=== PATIENT | male | born 1980 | race African-American/Black ===

== ENCOUNTER 2016-09-26 06:44 | Emergency (ER) | payer OTHER ==
[~2016-09-26] VITALS: Ht 170.2 cm; Wt 64.0 kg
[~2016-09-26 06:44] MED LIST: IBUP600T26 PO; ORPH100T PO; TRAM50 PO
[2016-09-26 06:50] VITALS: BP 124/85; PULSE 58; RESP 15; TEMP 98.1; O2SAT 100
--- NOTE | 2016-09-26 07:16 | PD ---
HPI Chief Complaint: Back/ Neck Pain or Injury Time Seen by Provider: 07:03 Travel History International Travel<30 days: No Contact w/Intl Traveler<30days: No Traveled to known affect area: No History of Present Illness HPI 35-year-old male complains of right low back pain right hip pain and right leg pain. Patient states the pain started a month ago. Patient states the pain aching pain and sharp pain started to right low back area with radiation to right hip and right leg. Patient denies any fall. Patient denies any focal weakness or numbness of extremity. Recent states the pain is worse with bending over. Patient denies any fever chills. Patient denies abdominal pain. Patient denies any dysuria or frequency. On a scale of 1-10 the pain is a 7. PFSH Past Medical History Medical History: Denies Significant Hx Immunizations Current: Yes Influenza Vaccination: No ?: Not Past Surgical History Surgical History: No Previous Surgery Social History Alcohol Use: Yes (RARE) Tobacco Use: Yes (1 1/2 PACK A DAY) Substance Use: No Allergies-Medications (Allergen,Severity, Reaction): Coded Allergies: No Known Allergies (Verified , 09/26/16) Reported Meds & Prescriptions Reported Meds & Active Scripts Active No Active Prescriptions or Reported Medications Review of Systems General / Constitutional: No: Fever Eyes: No: Visual changes HENT: No: Headaches Cardiovascular: No: Chest Pain or Discomfort Respiratory: No: Shortness of Breath Gastrointestinal: No: Abdominal Pain Genitourinary: No: Dysuria Musculoskeletal: No: Pain Skin: No Rash Neurologic: No: Weakness Psychiatric: No: Depression Endocrine: No: Polydipsia Hematologic/Lymphatic: No: Easy Bruising Physical Exam Narrative GENERAL: Well-nourished, well-developed patient. SKIN: Focused skin assessment warm/dry. HEAD: Normocephalic. EYES: No scleral icterus. No injection or drainage. NECK: Supple, trachea midline. No JVD or lymphadenopathy. CARDIOVASCULAR: Regular rate and rhythm without murmurs, gallops, or rubs. RESPIRATORY: Breath sounds equal bilaterally. No accessory muscle use. GASTROINTESTINAL: Abdomen soft, non-tender, nondistended. MUSCULOSKELETAL: No cyanosis, or edema. Mild to moderate tenderness on palpation anterior and lateral aspect the right hip. BACK: Moderate tenderness on palpation right lumbar area, without obvious deformity. No CVA tenderness. Positive straight leg raising on the right side. Neurologic exam normal. Data Data Last Documented VS Vital Signs Date Time Temp Pulse Resp B/P Pulse Ox O2 Delivery O2 Flow Rate FiO2 09/26/16 06:50 98.1 58 15 124/85 100 Orders Spine, Lumbar - Ltd (Ap & Lat) (09/26/16 07:10) Hip, Uni(Ap&Lat) W Ap Pelvis (09/26/16 07:10) Ct Hip W/O Contrast (09/26/16 ) MDM Medical Decision Making Medical Screen Exam Complete: Yes Emergency Medical Condition: Yes Interpretation(s) Last Impressions Lumbar Spine X-Ray 09/26/16 0710 Signed Impressions: Service Date/Time: Monday, September 26, 2016 07:43 - CONCLUSION: Straightening otherwise unremarkable limited examination of the lumbar spine. Ernie Cummins MD Hip and Pelvis X-Ray 09/26/16 0710 Signed Impressions: Service Date/Time: Monday, September 26, 2016 07:45 - CONCLUSION: Slight cortical regularity of the right femoral neck could be a ridge of osteophytes versus nondisplaced fracture. Ernie Cummins MD Lower Extremity CT 09/26/16 0000 Signed Impressions: Service Date/Time: Monday, September 26, 2016 08:33 - CONCLUSION: No fractures are seen. Farhad Andrews MD Differential Diagnosis Differential diagnosis including bursitis, tendinitis, sprain, fracture, dislocation, sciatica. Narrative Course 35-year-old male with right low back pain, right hip pain with radiation to right leg. Diagnosis Primary Impression: Low back pain Qualified Code: M54.41 - Acute bilateral low back pain with right-sided sciatica Additional Impression: Sciatica Qualified Code: M54.31 - Sciatica of right side Patient Instructions: General Instructions Additional Instructions: Take medications as directed for pain. Follow-up with orthopedist and personal physician if persistent problem. Return if worse. Off work today and tomorrow. Med/Other Pt SpecificInfo: Prescription(s) given Scripts Prednisone 20 Mg Tab20 Mg PO DAILY #7 TAB Prov:Wilberto Jones MD 09/26/16 Methocarbamol (Robaxin)750 Mg [id number] Mg PO QID #40 TAB Prov:Wilberto Jones MD 09/26/16 Meloxicam (Mobic)15 Mg Tab15 Mg PO DAILY #20 TAB Prov:Wilberto Jones MD 09/26/16 Disposition: 01 DISCHARGE HOME Condition: Stable Wilberto Jones MD September 26, 2016 07:16
--- NOTE | 2016-09-26 08:12 | RADHPO ---
EXAM DATE/TIME: 09/26/2016 07:43 [facility] COMPARISON: No previous studies available for comparison. INDICATIONS : Low back pain due to occupation. MEDICAL HISTORY : None. SURGICAL HISTORY : None. ENCOUNTER: Initial ACUITY: 1 day PAIN SCORE: 6/10 LOCATION: Lumbar spine FINDINGS: Two view examination was performed. There are five non-rib bearing vertebral bodies. The vertebral bodies are in normal alignment without evidence of subluxation or scoliosis. There is straightening. The disc spaces are maintained. The pedicles are intact. Bony mineralization is normal. No fractur e is identified. Tiny anterior endplate osteophytes. CONCLUSION: Straightening otherwise unremarkable limited examination of the lumbar spine. Ernie Cummins MD on September 26, 2016 at 8:10 Board Certified Radiologist. This report was verified electronically.
--- NOTE | 2016-09-26 08:17 | RADHPO ---
EXAM DATE/TIME: 09/26/2016 07:45 [facility] COMPARISON: No previous studies available for comparison. INDICATIONS : Right hip pain due to occupation MEDICAL HISTORY : None. SURGICAL HISTORY : None. ENCOUNTER: Initial ACUITY: 1 day PAIN SCORE: 6/10 LOCATION: Right lateral hip FINDINGS: Examination of the right hip was performed with AP Pelvis. Mild degenerative changes. Slight cortical regularity of the femoral neck may be related to a ridge of osteophytes. The acetabulum is grossly intact. CONCLUSION: Slight cortical regularity of the right femoral neck could be a ridge of osteophytes versus nondispla dick fracture. Ernie Cummins MD on September 26, 2016 at 8:13 Board Certified Radiologist. This report was verified electronically.
--- NOTE | 2016-09-26 09:04 | RADHPO ---
EXAM DATE/TIME: 09/26/2016 08:33 [facility] COMPARISON: No previous studies available for comparison. INDICATIONS : Right hip pain, abnormal x-ray. RADIATION DOSE: 8.23 CTDIvol (mGy) MEDICAL HISTORY : None SURGICAL HISTORY : None. ENCOUNTER: Initial ACUITY: 1 month PAIN SCALE: 5/10 LOCATION: Right pelvis TECHNIQUE: Volumetric scanning of the hip was performed. Using automated exposure control and adjustment of the mA and/or kV according to patient size, radiation dose was kept as low as reasonably achievable to o btain optimal diagnostic quality images. FINDINGS: BONES: No evidence of fracture. Alignment is within normal limits. There is mild osteophyte formation seen at the neck head junction greatest laterally which corresponds to the findings on the plain radiograp h. JOINTS: No evidence of joint narrowing or effusion. SOFT TISSUES: Muscles, tendons and neurovascular structures are grossly unremarkable. No evidence of mass, organize d fluid collection, or foreign body. CONCLUSION: No fractures are seen. Farhad Andrews MD on September 26, 2016 at 9:00 Board Certified Radiologist. This report was verified electronically.
[2016-09-26] MEDS ORDERED: MOBI15TA PO (09:16)
[2016-09-26] MEDS ORDERED: PRED20 PO (09:16)
[2016-09-26] MEDS ORDERED: ROBA750T PO (09:16)
[2016-09-26 09:29] VITALS: BP 122/63
== END 2016-09-26 09:31 | disposition home or self-care (01) ==
LOC: PHED 06:44
DX: M54.31 Sciatica, right side (principal); M25.551 Pain in right hip; F17.200 Nicotine dependence, unspecified, uncomplicated
CPT/HCPCS: 72100; 73502; 73700; 99284

== ENCOUNTER 2016-10-29 06:55 | Emergency (ER) | payer OTHER ==
[~2016-10-29] VITALS: Ht 170.2 cm; Wt 65.2 kg
[~2016-10-29 06:55] MED LIST changes: -IBUP600T26 PO; +MOBI15TA PO; -ORPH100T PO; +PRED20 PO; +ROBA750T PO; -TRAM50 PO
[2016-10-29 07:00] VITALS: BP 135/89; PULSE 61; RESP 18; TEMP 98.4; O2SAT 100
[2016-10-29] MEDS ORDERED: MOBI15TA PO (07:39)
[2016-10-29] MEDS ORDERED: ROBA750T PO (07:39)
--- NOTE | 2016-10-29 07:39 | PD ---
HPI Chief Complaint: Musculoskeletal Complaint Time Seen by Provider: 07:14 Travel History International Travel<30 days: No Contact w/Intl Traveler<30days: No Traveled to known affect area: No History of Present Illness HPI Patient is a 36-year-old male presents emergency Department with right lower extremity pain. Patient states he was here last month for similar and the pain went completely away but no his pain is returned. He describes the sensation as a numbness and tingling typically to the mid thigh but occasionally extends distally all the way down to his ankle and toes. Denies any saddle anesthesia denies any back pain denies any difficulty urinating or focalized weakness. Denies any injury. 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 He states his symptoms are moderate in severity; on for the past few days gradually worsening. [facility] Past Medical History Diminished Hearing: No Immunizations Current: Yes Influenza Vaccination: No ?: Not Past Surgical History Surgical History: No Previous Surgery Social History Alcohol Use: Yes (RARE) Tobacco Use: Yes (1 1/2 PACK A DAY) Substance Use: No Allergies-Medications (Allergen,Severity, Reaction): Coded Allergies: No Known Allergies (Verified , 10/29/16) Reported Meds & Prescriptions Reported Meds & Active Scripts Active Mobic (Meloxicam) 15 Mg Tab 15 Mg PO DAILY Robaxin (Methocarbamol) 750 Mg Tab 750 Mg PO QID Review of Systems Except as stated in HPI: all other systems reviewed are Neg Physical Exam Narrative GENERAL: Well-nourished, well-developed patient. SKIN: Focused skin assessment warm/dry. HEAD: Normocephalic. EYES: No scleral icterus. No injection or drainage. NECK: Supple, trachea midline. No JVD or lymphadenopathy. CARDIOVASCULAR: Regular rate and rhythm without murmurs, gallops, or rubs. RESPIRATORY: Breath sounds equal bilaterally. No accessory muscle use. GASTROINTESTINAL: Abdomen soft, non-tender, nondistended. MUSCULOSKELETAL: No cyanosis, or edema. No midline CT or L-spine tenderness, no tenderness at the right SI joint, straight leg test is positive on the right. Pulses motor and sensory intact distally in all 4 extremities, no focalized bruising, no lesion, no mass, no laceration and no bony tenderness in the right lower extremity, he is able to ambulate with minimal pain. Left lower extremity is normal. BACK: Nontender without obvious deformity. No CVA tenderness. Data Data Last Documented VS Vital Signs Date Time Temp Pulse Resp B/P Pulse Ox O2 Delivery O2 Flow Rate FiO2 10/29/16 07:00 98.4 61 18 135/89 100 Orders Sodium Chloride 0.9% Flush (Ns Flush) (10/29/16 07:45) Acetamin-Hydrocod 325-5 Mg ([place] 5-325 (10/29/16 07:45) Mandatory Outpatient Referral (10/29/16 07:40) MDM Medical Decision Making Medical Screen Exam Complete: Yes Emergency Medical Condition: Yes Differential Diagnosis Sciatica, muscle strain, muscle sprain, degenerative disc disease. Cauda equina syndrome has been excluded clinically. Narrative Course Patient was roomed in the emergency department, review of his records shows he was indeed here approximate month ago and had x-ray of his right hip which is equivocal and therefore had a CT of his lower extremity which was negative. Patient's symptoms are consistent with sciatica and recommended to him that he needs to consider following up with a primary care physician for consideration of an MRI. Today he has no emergent indication for an MRI and is stable for discharge. Review of his E4 shows no recent narcotic scripts. Discussed pain management and symptomatic management at home and return to ED criteria. Diagnosis Primary Impression: Sciatica Qualified Code: M54.31 - Sciatica of right side Referrals: [facility] Additional Instructions: Follow up with the patient assistance program. Med/Other Pt SpecificInfo: Prescription(s) given Scripts Meloxicam (Mobic)15 Mg Tab15 Mg PO DAILY #20 TAB Prov:Laurent Frazier MD 10/29/16 Methocarbamol (Robaxin)750 Mg [id number] Mg PO QID #40 TAB Prov:Laurent Frazier MD 10/29/16 Disposition: DISCHARGE HOME Condition: Stable Laurent Frazier MD Oct 29, 2016 07:39
[2016-10-29] MEDS ORDERED: ACETAMINOPHEN/HYDROcodone 325 MG/5 MG TAB PO ONE (07:45)
[2016-10-29] MEDS ORDERED: SODIUM CHLORIDE 0.9% FLUSH 10 ML FLUSH IVF PRN (07:45)
== END 2016-10-29 08:06 | disposition home or self-care (01) ==
LOC: PHED 06:55
DX: M54.31 Sciatica, right side (principal)
CPT/HCPCS: 99284

== ENCOUNTER 2016-11-08 07:18 | Emergency (ER) | payer SELFPAY ==
[~2016-11-08] VITALS: Ht 170.2 cm; Wt 63.5 kg
[~2016-11-08 07:18] MED LIST changes: -PRED20 PO
[2016-11-08 07:19] VITALS: BP 145/89; PULSE 64; RESP 18; TEMP 98.2; O2SAT 100
[2016-11-08] MEDS ORDERED: DEXAMETHASONE SOD PHOS 4 MG/ML VIAL IM ONE (07:30)
[2016-11-08] MEDS ORDERED: PRED20 PO (07:35)
[2016-11-08] MEDS ORDERED: IBUP-232 PO (07:35)
--- NOTE | 2016-11-08 07:36 | PD ---
HPI Chief Complaint: Musculoskeletal Complaint Time Seen by Provider: 07:23 Travel History International Travel<30 days: No Contact w/Intl Traveler<30days: No Traveled to known affect area: No History of Present Illness HPI 36-year-old male complains of right hip pain with pain radiation down the right leg. Patient has been seen in emergency room 2 times in the past with the same problem. X-ray and CT of the right hip was negative acute pathology. Patient states that he was put on prednisone, Mobic and Robaxin. Patient states that he got a lot of relief with prednisone. Patient states that he had persistent pain since last visit on Mobic and Robaxin. Patient denies any recent injury. Patient denies any fever chills. Patient denies any focal weakness and numbness of extremity. PFSH Past Medical History Medical History: Denies Significant Hx Diminished Hearing: No Immunizations Current: Yes Influenza Vaccination: No ?: Not Past Surgical History Surgical History: No Previous Surgery Social History Alcohol Use: Yes (RARE) Tobacco Use: Yes (1 1/2 PACK A DAY) Substance Use: No Allergies-Medications (Allergen,Severity, Reaction): Coded Allergies: No Known Allergies (Verified , 11/08/16) Reported Meds & Prescriptions Reported Meds & Active Scripts Active Mobic (Meloxicam) 15 Mg Tab 15 Mg PO DAILY Robaxin (Methocarbamol) 750 Mg Tab 750 Mg PO QID Review of Systems General / Constitutional: No: Fever Eyes: No: Visual changes HENT: No: Headaches Cardiovascular: No: Chest Pain or Discomfort Respiratory: No: Shortness of Breath Gastrointestinal: No: Abdominal Pain Genitourinary: No: Dysuria Musculoskeletal: Positive: Pain Skin: No Rash Neurologic: No: Weakness Psychiatric: No: Depression Endocrine: No: Polydipsia Hematologic/Lymphatic: No: Easy Bruising Physical Exam Narrative GENERAL: Well-nourished, well-developed patient. SKIN: Focused skin assessment warm/dry. HEAD: Normocephalic. EYES: No scleral icterus. No injection or drainage. NECK: Supple, trachea midline. No JVD or lymphadenopathy. CARDIOVASCULAR: Regular rate and rhythm without murmurs, gallops, or rubs. RESPIRATORY: Breath sounds equal bilaterally. No accessory muscle use. GASTROINTESTINAL: Abdomen soft, non-tender, nondistended. MUSCULOSKELETAL: No cyanosis, or edema. Patient has tenderness on palpation right sciatic notch. Positive straight leg raising the right leg. Sensorimotor function distally intact. BACK: Nontender without obvious deformity. No CVA tenderness. Neurologic exam normal. Data Data Last Documented VS Vital Signs Date Time Temp Pulse Resp B/P Pulse Ox O2 Delivery O2 Flow Rate FiO2 11/08/16 07:19 98.2 64 18 145/89 100 MDM Medical Decision Making Medical Screen Exam Complete: Yes Emergency Medical Condition: Yes Differential Diagnosis Differential diagnosis including sciatica, neuropathy, bursitis, tendinitis. Narrative Course 36-year-old male with persistent right hip pain with radiation to right leg. Typical of sciatica. Decadron 8 mg IM. Diagnosis Primary Impression: Sciatica Qualified Code: M54.31 - Sciatica of right side Patient Instructions: General Instructions Additional Instructions: Take medications as directed. Follow-up with orthopedist. Return if worse. Med/Other Pt SpecificInfo: Prescription(s) given Scripts Ibuprofen 600 Mg [id number] Mg PO TID #90 TAB Ref 0 Prov:Wilberto Jones MD 11/08/16 Prednisone 20 Mg Tab20 Mg PO DAILY #10 TAB Prov:Wilberto Jones MD 11/08/16 Disposition: 01 DISCHARGE HOME Condition: Stable Wilberto Jones MD Nov 08, 2016 07:36
== END 2016-11-08 07:59 | disposition home or self-care (01) ==
LOC: PHED 07:18
DX: M54.31 Sciatica, right side (principal)
CPT/HCPCS: 96372; 99284; J1100